=== PATIENT | male | born 1980 | race Caucasian/White ===

== ENCOUNTER 2016-12-16 14:53 | Inpatient (IN) | payer BC ==
[~2016-12-16] VITALS: Ht 170.2 cm; Wt 68.3 kg
[2016-12-16 15:59] LABS: BLOOD UREA NITROGEN 12 mg/dL (7-18)
[2016-12-16] MEDS ORDERED: POLYETHYLENE GLYCOL 17 GM PACKET PO PRN (18:30)
[2016-12-16] MEDS ORDERED: BISACODYL 10 MG SUPP PR PRN (18:30)
[2016-12-16] MEDS ORDERED: ACETAMINOPHEN 325 MG TABLET PO PRN (18:30)
[2016-12-16] MEDS ORDERED: ONDANSETRON 2MG/ML, 2ML IVPush PRN (18:30)
[2016-12-16 20:31] VITALS: BP 123/81
[2016-12-16] MEDS: OXYcodone IR 5MG TABLET PO PRN (20:56)
[2016-12-16] MEDS: SODIUM CHLORIDE FLUSH 10ML SYR IVF SCH (20:57)
[2016-12-16] MEDS: HEPARIN 5,000 UNITS/ML, 1ML SQ SCH (21:00)
[2016-12-17 01:29] VITALS: BP 115/74
[2016-12-17 05:28] LABS: ASPARTATE AMINO TRANSFERASE 20 U/L (15-37); BLOOD UREA NITROGEN 12 mg/dL (7-18)
[2016-12-17 07:30] VITALS: BP 112/67
[2016-12-17] MEDS: SODIUM CHLORIDE FLUSH 10ML SYR IVF SCH ×2 (08:54→21:00)
[2016-12-17] MEDS: OXYcodone IR 5MG TABLET PO PRN (08:54)
[2016-12-17] MEDS: SENNA/DOCUSATE TABLET PO SCH (08:55)
[2016-12-17] MEDS: HEPARIN 5,000 UNITS/ML, 1ML SQ SCH ×2 (12:37→19:28)
[2016-12-17 13:24] VITALS: BP 131/94
[2016-12-17] MEDS: IBUPROFEN 200 MG TABLET PO PRN ×2 (15:47→21:33)
[2016-12-17 17:06] LABS: HIV 1&2 ANTIBODY SCREEN Nonreactive (Nonreactive); HIV-1 p24 ANTIGEN Nonreactive (Nonreactive)
[2016-12-17 19:16] VITALS: BP 117/64
[2016-12-17] MEDS: SODIUM CHLORIDE 0.9% 1,000 ML IV SCH (21:00)
[2016-12-18 02:47] VITALS: BP 111/74
[2016-12-18] MEDS: HEPARIN 5,000 UNITS/ML, 1ML SQ SCH (04:07)
[2016-12-18] MEDS: IBUPROFEN 200 MG TABLET PO PRN (07:17)
[2016-12-18] MEDS: SENNA/DOCUSATE TABLET PO SCH (07:17)
[2016-12-18 07:46] VITALS: BP 104/68
[2016-12-18] MEDS: SODIUM CHLORIDE 0.9% 1,000 ML IV SCH (09:43)
[2016-12-18] MEDS: SODIUM CHLORIDE FLUSH 10ML SYR IVF SCH (09:44)
[2016-12-18] MEDS ORDERED: IBUP200T5 PO ×2 (11:44→11:51)
[2016-12-18] MEDS ORDERED: OMEP-110 PO (11:47)
[2016-12-18 12:51] VITALS: BP 117/76
[2016-12-19 09:58] LABS: RHEUMATOID FACTOR SCREEN NEGATIVE (NEGATIVE)
[2016-12-19 10:31] LABS: HEP B SURF. AB 3.2 mIU/mL (0.0-10.0)
[2016-12-19 11:02] LABS: HEPATITIS C VIRUS ANTIBODY Nonreactive (Nonreactive)
[2016-12-19 11:04] LABS: HEPATITIS A ANTIBODY TOTAL Reactive (Nonreactive)
[2016-12-19 13:06] LABS: ANA DIRECT Negative (Negative); COMPLEMENT C3 260 mg/dL (82-167); COMPLEMENT C4 37 mg/dL (14-44); INTERMYOFIBRILLAR AB Negative (Neg:<1:20); MITOCHONDRIAL (M2) AB 5.7 Units (0.0-20.0); PARIETAL CELL AB 3.5 Units (0.0-20.0); RA LATEX TURBIDITY 10.6 IU/mL (0.0-13.9); SARCOLEMMA AB Negative (Neg:<1:20); SJOGREN'S SS-A AB <0.2 AI (0.0-0.9); STRIATION AB Negative (Neg:<1:40); THYROID PEROXIDASE (TPO) AB 65 IU/mL (0-34)
== END 2016-12-18 13:10 | disposition home or self-care (01) | DRG 556 ==
LOC: ED 17:24 → EDIP 18:17 → 3NE 19:45 → DCLOUNGE 12-18 13:00
PROVIDERS: ADMIT Internal Medicine; ATTEND Internal Medicine
DX: M25.50 Pain in unspecified joint (principal); B94.8 Sequelae of other specified infectious and parasitic diseases; W57.XXXS Bitten or stung by nonvenomous insect and other nonvenomous arthropods, sequela; Z72.89 Other problems related to lifestyle
CPT/HCPCS: 36415; 80048; 80053; 81003; 82040; 83516; 84550; 85025; 85651; 86038; 86141; 86147; 86160; 86225; 86235; 86255; 86256; 86376; 86430; 86431; 86703; 86704; 86705; 86706; 86708; 86709; 86790; 86803; 87340; 87491; 87591; 87899; 86226; G0435